=== PATIENT | female | born 1980 | race Caucasian/White ===

== ENCOUNTER 2024-10-18 14:30 | Emergency (ER) | payer BC ==
[~2024-10-18] VITALS: Ht 167.6 cm; Wt 59.0 kg
[2024-10-18] MEDS ORDERED: TDAP DIPH,PERTUSS,TET VAC/PF 0.5 ML DISP.SYRIN IM ONE (15:48)
[2024-10-18] MEDS: TDAP DIPH,PERTUSS,TET VAC/PF 0.5 ML DISP.SYRIN IM ONE (15:54)
[2024-10-18 16:17] VITALS: BP 124/87; O2SAT 98
== END 2024-10-18 16:18 | disposition home or self-care (01) ==
LOC: ER 14:30
DX: S61.216A Laceration without foreign body of right little finger without damage to nail, initial encounter (principal); Z88.2 Allergy status to sulfonamides; W27.4XXA Contact with kitchen utensil, initial encounter; Y93.89 Activity, other specified; Y92.89 Other specified places as the place of occurrence of the external cause; Y99.8 Other external cause status
CPT/HCPCS: 90715; A4606; A4663